=== PATIENT | male | born 1975 | race Caucasian/White ===

== ENCOUNTER 2021-06-02 04:11 | Emergency (ER) | payer OTHER ==
[2021-06-02] MEDS ORDERED: Diphtheria,Pertussis(Acell),Tetanus Vaccine 0.5 ML Syringe IM ONE (04:18)
--- NOTE | 2021-06-02 04:22 | EDM.PDOC ---
ED HPI GENERAL MEDICAL PROBLEM - General Chief Complaint: Respiratory Problem Stated Complaint: [facility] Time Seen by Provider: 06/02/21 04:15 Source of Information: Reports: Patient, EMS, Police History Limitations: Reports: No Limitations - History of Present Illness INITIAL COMMENTS - FREE TEXT/NARRATIVE: 45 yo male is here for evaluation of a reported asthma attack. Police stopped him for driving intoxicated and he tried to flee on foot. When they caught up with him he resisted arrest and when he was finally constrained he feigned an asthma attack so was brought to the ER. Oximeter was 100% en route. Last tetanus was in '12. Onset: Today, Sudden Onset Date: 06/02/21 Duration: Minutes:, Constant Location: Reports: Chest Quality: Denies: Other (none) Severity: Moderate Improves with: Reports: Other (being left undisturbed) Worsens with: Reports: Other (when he is being examined) Context: Reports: Other (see HPI) Associated Symptoms: Reports: No Other Symptoms Treatments PROJECT MANAGER: Reports: Other (see below) (none) ED ROS GENERAL - Review of Systems Review Of Systems: See Below Constitutional: Reports: No Symptoms HEENT: Reports: No Symptoms Respiratory: Reports: Shortness of Breath, Wheezing Cardiovascular: Reports: No Symptoms Endocrine: Reports: No Symptoms GI/Abdominal: Reports: No Symptoms : Reports: No Symptoms Musculoskeletal: Reports: No Symptoms Skin: Reports: Other (abrasions on face from rolling around on the ground resisisting arrest) Neurological: Reports: No Symptoms, Confusion, Dizziness, Headache, Numbness ED EXAM, GENERAL - Physical Exam Exam: See Below Exam Limited By: Intoxication General Appearance: Alert, WD/WN, No Apparent Distress Eye Exam: Bilateral Eye: Normal Inspection Ears: Normal External Exam, Normal Canal, Hearing Grossly Normal Ear Exam: Bilateral Ear: Auricle Normal, Canal Normal Nose: Normal Inspection, No Blood Throat/Mouth: Normal Inspection, Normal Lips, Normal Oropharynx, Normal Voice, No Airway Compromise Head: Atraumatic, Normocephalic Neck: Normal Inspection Respiratory/Chest: No Respiratory Distress, Lungs Clear, Normal Breath Sounds, No Accessory Muscle Use, Chest Non-Tender Cardiovascular: Regular Rate, Rhythm GI/Abdominal: Soft, Non-Tender Extremities: Normal Inspection, Normal Range of Motion, Non-Tender, No Pedal Edema Neurological: No Motor/Sensory Deficits, Other (poor cooperation due to intoxication) Psychiatric: Anxious Skin Exam: Warm, Dry, Normal Color, No Rash, Wound/Incision (abrasions of face). No: Intact Course - Re-Assessments/Exams Free Text/Narrative Re-Assessment/Exam: 06/02/21 04:25 Refused [facility] Departure - Departure Time of Disposition: 04:30 Disposition: Home, Self-Care 01 Condition: Fair Clinical Impression: Abrasion Alcohol intoxication Qualifiers: Complication of substance-induced condition: with unspecified complication Qualified Code(s): F10.929 - Alcohol use, unspecified with intoxication, unspecified - Discharge Information *PRESCRIPTION DRUG MONITORING PROGRAM REVIEWED*: Not Applicable *COPY OF PRESCRIPTION DRUG MONITORING REPORT IN PATIENT JIGNESH: Not Applicable Instructions: Abrasion Referrals: PCP,None [Primary Care Provider] - Additional Instructions: Clean wounds twice a day with soap and water. Dry. Apply Bacitracin ointment. Recheck for signs of infection.
== END 2021-06-02 04:36 | disposition home or self-care (01) ==
LOC: JP.ED 04:11
DX: S00.81XA Abrasion of other part of head, initial encounter (principal); F10.129 Alcohol abuse with intoxication, unspecified; X58.XXXA Exposure to other specified factors, initial encounter
CPT/HCPCS: 99284

== ENCOUNTER 2022-06-21 15:14 | Emergency (ER) | payer MEDICAID ==
[2022-06-21] MEDS ORDERED: methylPREDNISolone Sodium Succinate 40 MG/1 ML SDV IM ONE (16:53)
== END 2022-06-21 17:26 | disposition home or self-care (01) ==
LOC: JP.ED 15:14
DX: L23.7 Allergic contact dermatitis due to plants, except food (principal); F17.210 Nicotine dependence, cigarettes, uncomplicated
CPT/HCPCS: 96372; 99282; J2920